=== PATIENT | female | born 1970 | race Caucasian/White ===

== ENCOUNTER 2020-08-22 06:12 | Day surgery (SDC) | payer BC, OTHER ==
[~2020-08-22] VITALS: Ht 152.4 cm; Wt 84.1 kg
[2020-08-22 06:20] VITALS: BP 131/92
[2020-08-22] MEDS ORDERED: LIDOcaine Viscous 15ml cup ONE (06:30)
[2020-08-22] MEDS ORDERED: fentaNYL/PF 50MCG/1 ML 2ML syringe ONE (06:30)
[2020-08-22] MEDS ORDERED: MIDAZolam 5mg/5ml vial ONE (06:30)
[2020-08-22] MEDS ORDERED: ESTR1.25 PO (06:39)
[2020-08-22] MEDS ORDERED: METO50TA17 PO (06:39)
[2020-08-22] MEDS ORDERED: OMEP20TA23 PO (06:40)
[2020-08-22 07:38] VITALS: BP 129/85
[2020-08-22 07:48] VITALS: BP 118/77
[2020-08-22 07:58] VITALS: BP 125/80
[2020-08-22 08:08] VITALS: BP 119/72
== END 2020-08-22 08:15 | disposition home or self-care (01) ==
LOC: GI LAB 06:12
PROVIDERS: ATTEND Internal Medicine Gastroenterology
DX: R13.10 Dysphagia, unspecified (principal); R19.4 Change in bowel habit; K62.5 Hemorrhage of anus and rectum; K57.30 Diverticulosis of large intestine without perforation or abscess without bleeding; K64.0 First degree hemorrhoids; K29.50 Unspecified chronic gastritis without bleeding; K20.80 Other esophagitis without bleeding; Z79.899 Other long term (current) drug therapy
CPT/HCPCS: 43239; 45378; 99152; 99153; J2250; J3010; J7040; A4620

== ENCOUNTER 2021-11-20 11:49 | Outpatient (CLI) | payer BC, OTHER ==
[~2021-11-20 11:49] MED LIST: ESTR1.25 PO; METO50TA17 PO; OMEP20TA23 PO
== END 2021-11-20 23:59 | disposition home or self-care (01) ==
LOC: RAD 11:49
PROVIDERS: ATTEND Family Medicine
DX: M76.61 Achilles tendinitis, right leg (principal)
CPT/HCPCS: 73610

== ENCOUNTER 2021-11-30 09:58 | Outpatient (CLI) | payer BC, OTHER | END 2021-11-30 23:59 | disposition home or self-care (01) | LOC: RAD 09:58 | PROVIDERS: ATTEND Podiatrist Foot & Ankle Surgery | DX: S93.431A Sprain of tibiofibular ligament of right ankle, initial encounter (principal); M25.471 Effusion, right ankle; X58.XXXA Exposure to other specified factors, initial encounter; Y93.89 Activity, other specified; Y92.89 Other specified places as the place of occurrence of the external cause; Y99.8 Other external cause status | CPT/HCPCS: 73721 ==

== ENCOUNTER 2022-04-19 08:02 | Day surgery (SDC) | payer BC, OTHER ==
[2022-04-12 15:04] LABS: CLARITY,URINE CLEAR (Clear); COLOR,URINE YELLOW (Yellow); GLUCOSE, URINE NEGATIVE (Neg); KETONES,URINE NEGATIVE (Neg); LEUKOCYTE ESTERASE ,URINE NEGATIVE (Neg); NITRITES, URINE NEGATIVE (Neg); OCCULT BLOOD,URINE NEGATIVE (Neg); PROTEIN,URINE NEGATIVE (Neg); UROBILINOGEN,URINE 0.2 E.U/dL (0.2-1.0)
[2022-04-12 15:07] LABS: UA COLLECTION TYPE CLN CATCH MIDSTREAM
[2022-04-12 15:17] LABS: BASOPHILS % (AUTO) 0.5 % (0-1); EOSINOPHILS # (AUTO) 0.1 X10'3 (0-0.9); EOSINOPHILS % (AUTO) 1.4 % (0-6); LYMPHOCYTES # (AUTO) 1.4 X10'3 (1.1-4.8); LYMPHOCYTES % (AUTO) 22.2 % (21-51); MEAN CORPUSCULAR HGB CONC 34.4 g/dL (33.0-36.5); MEAN PLATELET VOLUME 8.6 FL (7.4-10.4); MONOCYTES # (AUTO) 0.5 X10'3 (0-0.9); MONOCYTES % (AUTO) 8.1 % (2-12); NEUTROPHILS # (AUTO) 4.3 X10'3 (1.8-7.7); NEUTROPHILS % (AUTO) 67.8 % (42-75); PRE OP HEMATOCRIT 42.5 % (35.0-45.0); PRE OP HEMOGLOBIN 14.6 g/dL (12.0-16.0); PRE OP PLATELET COUNT 308 X10'3 (140-440); RED BLOOD COUNT 4.88 X10'6 (4.20-5.60); RED CELL DISTRIBUTION WIDTH 12.8 % (11.5-14.5)
[2022-04-12 15:20] LABS: ALBUMIN 4.3 G/DL (3.4-5.0); ALBUMIN/GLOBULIN RATIO 1.2 (1.1-1.5); ALKALINE PHOSPHATASE 39 IU/L (46-116); BLOOD UREA NITROGEN 21 MG/DL (7-18); BUN/CREATININE RATIO 25.9 (6.6-38.0); CALCIUM 9.4 MG/DL (8.5-10.1); CHLORIDE 100 MMOL/L (99-107); CREATININE 0.81 MG/DL (0.40-0.90); PRE OP ALT 29 U/L (30-65); PRE OP ANION GAP 11 (8-16); PRE OP AST 18 U/L (10-37); PRE OP BILIRUB, TOTAL 0.7 MG/DL (0.0-1.0); PRE OP GLUCOSE 95 MG/DL (70-104); PRE OP POTASSIUM 3.5 MMOL/L (3.4-5.1); PRE OP SODIUM 138 MMOL/L (135-145); TOTAL CARBON DIOXIDE 26.9 MMOL/L (24-32); TOTAL PROTEIN 7.9 G/DL (6.4-8.2); eGFR 74 ML/MIN
[2022-04-19] VITALS (15 sets, daily range): BP systolic 110–135; BP diastolic 65–99
[~2022-04-19] VITALS: Ht 152.4 cm; Wt 87.8 kg
[~2022-04-19 08:02] MED LIST changes: +DOCUMENT DATE & TIME OF BETA-BLOCKER PO ONE; -ESTR1.25 PO; +ESTR1TAB23 PO; -OMEP20TA23 PO; +ceFAZolin inj. 2,000 MG in dextrose 5%-water 100 ML IV ONE; +famotidine 20mg tablet PO ONE; +ringers solution, lacted 1,000 ML IV SCH
[2022-04-19] MEDS ORDERED: aprepitant 40mg capsule PO STA (10:13)
[2022-04-19] MEDS ORDERED: scopolamine 1mg/72 hr patch TD ONE (10:53)
[2022-04-19] MEDS ORDERED: fentaNYL/PF 50MCG/1 ML 2ML syringe ONE (11:10)
[2022-04-19] MEDS ORDERED: bacitracin 15gm ointment TP ONE (11:10)
[2022-04-19] MEDS ORDERED: midazolam 1 mg/ML 2ml injection ONE (11:10)
[2022-04-19] MEDS ORDERED: sevoflurane 250ml liquid IH ONE (11:15)
[2022-04-19] MEDS ORDERED: ondansetron/PF 4mg/2ml inj IV PRN (12:10)
[2022-04-19] MEDS ORDERED: morphine 4 MG/ML inj SYRINge IV PRN (12:10)
[2022-04-19] MEDS ORDERED: ringers solution, lacted 1,000 ML IV SCH (12:10)
[2022-04-19] MEDS ORDERED: proCHLORperazine 10 MG/2 ml inj IV PRN (12:10)
[2022-04-19] MEDS ORDERED: morphine 2 MG/ML inj. syringe IV PRN (12:10)
[2022-04-19] MEDS ORDERED: meperidine/PF 25mg/ml syringe IV PRN ×3 (12:10)
[2022-04-19] MEDS ORDERED: glycopyrrolate 0.2mg/ml inj ONE (12:13)
[2022-04-19] MEDS ORDERED: LIDOcaine 1%/PF 5ML 10 MG/ML VIAL ONE (12:13)
[2022-04-19] MEDS ORDERED: rocuronium 10mg/ml inj IV ONE (12:13)
[2022-04-19] MEDS ORDERED: neostigmine methylsulfate 1 MG/ML 10ml vial ONE (12:13)
[2022-04-19] MEDS ORDERED: acetaminophen 1,000mg/100ml IV 100 ML IV ONE (12:13)
[2022-04-19] MEDS ORDERED: dexamethasone sod phosphate 4mg/ml inj. ONE (12:13)
[2022-04-19] MEDS ORDERED: propofol inj 20 ML IV ONE (12:13)
[2022-04-19] MEDS ORDERED: ePHEDrine 50MG/ML INJ. ONE (12:14)
--- NOTE | 2022-04-19 12:50 | NUR ---
Received from OR via [facility], accompanied by Anesthesiologist DR BOOTH and report given by Anesthesiolpgist. PT DROWSY, DENIES PAIN. RIGHT FOOT TO MID CALF W/EB WRAP COVERING INCISION/DRSG/SPLINT CDI, TOES PWD, HANDBAG FRAMER 1-2 SECONDS. Addendum: 04/19/22 at 1531 by Addis Adhikari RN Amended: Links added.
[2022-04-19] MEDS ORDERED: meperidine/PF 25mg/ml syringe ONE (12:52)
--- NOTE | 2022-04-19 15:10 | NUR ---
PT COMFORTABLE, D/C INSTRUCTIONS GIVEN AND GONE OVER W/PT WHO VERBALIZED UNDERSTANDING. PT D/CD TO HOME VIA W/C TO PRIVATE VEHICLE W/O INCIDENT. Addendum: 04/19/22 at 1531 by Addis Adhikari RN Amended: Links added.
== END 2022-04-19 15:10 | disposition home or self-care (01) ==
LOC: PAS 08:02
PROVIDERS: ATTEND Podiatrist Foot & Ankle Surgery
DX: M76.61 Achilles tendinitis, right leg (principal); M77.31 Calcaneal spur, right foot; M92.61 Juvenile osteochondrosis of tarsus, right ankle; G89.18 Other acute postprocedural pain; G43.909 Migraine, unspecified, not intractable, without status migrainosus; Z79.899 Other long term (current) drug therapy; Z20.822 Contact with and (suspected) exposure to COVID-19; Z98.890 Other specified postprocedural states
CPT/HCPCS: 27650; 28119; 36415; 64450; 73600; 76942; 80053; 81003; 85025; 87811; 93005; C1713; J0131; J0690; J1100; J2175; J2250; J2704; J2710; J3010; J3490; J7030; J7060; J7120; J8501; Z7506; Z7508; Z7512; 76000; A4215; A4618; A6253; A6449; A7000

== ENCOUNTER 2024-06-17 07:10 | Outpatient (CLI) | payer BC, OTHER ==
[~2024-06-17 07:10] MED LIST changes: -DOCUMENT DATE & TIME OF BETA-BLOCKER PO ONE; -ceFAZolin inj. 2,000 MG in dextrose 5%-water 100 ML IV ONE; -famotidine 20mg tablet PO ONE; -ringers solution, lacted 1,000 ML IV SCH
[2024-06-17 07:44] LABS: BASOPHILS # (AUTO) 0.1 X10'3 (0-0.2); EOSINOPHILS # (AUTO) 0.2 X10'3 (0-0.9); EOSINOPHILS % (AUTO) 3.5 % (0-6); HEMATOCRIT 43.1 % (35.0-45.0); HEMOGLOBIN 14.7 g/dl (12.0-16.0); LYMPHOCYTES # (AUTO) 1.4 X10'3 (1.1-4.8); LYMPHOCYTES % (AUTO) 24.3 % (21-51); MEAN CORPUSCULAR HEMOGLOBIN 29.8 PG (27.0-31.0); MEAN CORPUSCULAR HGB CONC 34.2 g/dL (33.0-36.5); MEAN CORPUSCULAR VOLUME 87.2 FL (78-98); MEAN PLATELET VOLUME 8.1 FL (7.4-10.4); MONOCYTES # (AUTO) 0.5 X10'3 (0-0.9); MONOCYTES % (AUTO) 8.8 % (2-12); NEUTROPHILS # (AUTO) 3.5 X10'3 (1.8-7.7); NEUTROPHILS % (AUTO) 62.4 % (42-75); PLATELET COUNT 316 X10'3 (140-440); RED BLOOD COUNT 4.94 X10'6 (4.20-5.60); RED CELL DISTRIBUTION WIDTH 12.6 % (11.5-14.5); WHITE BLOOD COUNT 5.7 X10'3 (4.5-11.0)
[2024-06-17 08:00] LABS: ALANINE AMINOTRANSFERASE 43 U/L (12-78); ALBUMIN/GLOBULIN RATIO 1.1 (1.1-1.5); ALKALINE PHOSPHATASE 51 IU/L (46-116); ANION GAP 10 (8-16); ASPARTATE AMINO TRANSFERASE 22 U/L (10-37); BILIRUBIN,TOTAL 0.5 MG/DL (0.1-1.0); BLOOD UREA NITROGEN 17 MG/DL (7-18); CALCIUM 8.9 MG/DL (8.5-10.1); CHLORIDE 105 MMOL/L (99-107); CHOL/HDL RATIO 2.7 (0.00-4.99); CHOLESTEROL 214 MG/DL (0-200); CREATININE 0.85 MG/DL (0.40-0.90); GLUCOSE 101 MG/DL (70-104); HDL CHOLESTEROL 79 MG/DL (35-60); LDL CHOLESTEROL 112 MG/DL (50-100); SODIUM 140 MMOL/L (135-145); TOTAL CARBON DIOXIDE 25.1 MMOL/L (24-32); TOTAL PROTEIN 7.7 G/DL (6.4-8.2); TRIGLYCERIDES 106 MG/DL (20-135); eGFR 69 ML/MIN
[2024-06-17 08:35] LABS: HEMOGLOBIN A1C 5.6 % (4.5-6.2)
== END 2024-06-17 23:59 | disposition home or self-care (01) ==
LOC: LAB 07:10
DX: E78.6 Lipoprotein deficiency (principal); E66.01 Morbid (severe) obesity due to excess calories
CPT/HCPCS: 36415; 80053; 80061; 83036; 85025

== ENCOUNTER 2025-05-20 08:04 | Outpatient (CLI) | payer BC, OTHER ==
[2025-05-20 08:35] LABS: MEAN PLATELET VOLUME 8.1 FL (7.4-10.4); RED CELL DISTRIBUTION WIDTH 12.6 % (11.5-14.5)
[2025-05-20 08:56] LABS: CHOL/HDL RATIO 3.3 (0.00-4.99); CREATININE 0.69 MG/DL (0.40-0.90); LDL CHOLESTEROL 114 MG/DL (50-100); TOTAL CARBON DIOXIDE 28.1 MMOL/L (24-32); eGFR 88 ML/MIN
== END 2025-05-20 23:59 | disposition home or self-care (01) ==
LOC: RAD 08:04
PROVIDERS: ATTEND Family Medicine
DX: I10 Essential (primary) hypertension (principal); E66.9 Obesity, unspecified; E78.5 Hyperlipidemia, unspecified; Z83.3 Family history of diabetes mellitus
CPT/HCPCS: 36415; 80053; 80061; 83036; 84443; 85025